=== PATIENT | male | born 1975 ===

== ENCOUNTER 2021-12-26 11:49 | Inpatient (IN) | payer SELFPAY ==
[2021-12-26 13:46] LABS: Bilirubin,Urine NEG (Negative); Blood,Urine MOD (Negative); Color,Urine Amber (Yellow)
--- NOTE | 2021-12-26 13:52 | Cat Scan Report ---
CT head/brain wo con INDICATION: fall. TECHNIQUE: Routine CT head. All CT scans at this location are performed using CT dose reduction for A GIRMA by means of automated exposure control. COMPARISON: None. FINDINGS: Intracranial: Dao-white matter differentiation is maintained. No intracranial hemorrhage. No extra a xial collection. No hydrocephalus. No herniation. Sinuses: Moderate mucosal thickening in the paranasal sinuses. Mastoid air cells are clear.. Orbits: Globes are intact. Calvarium: No acute fracture. IMPRESSION: 1. No acute intracranial abnormality. Signer Name: Carlos Heck MD Signed: 12/26/2021 1:48 PM Workstation Name: [id number]
[2021-12-26 13:54] LABS: Hyaline Casts,Urine 21 /LPF; Mucus,Urine FEW /HPF
[2021-12-26 14:44] LABS: Alanine Aminotransferase 171 units/L (7-56); Albumin 3.9 g/dL (3.9-5); Blood Urea Nitrogen 6 mg/dL (9-20); Calcium 8.3 mg/dL (8.4-10.2); Hemolysis Index 10
[2021-12-26 14:55] LABS: BUN/Creatinine Ratio 15; Hematocrit 36.5 % (35.5-45.6); Hemoglobin 12.9 gm/dl (11.8-15.2); Mean Corpuscular Volume 101 fl (84-94)
[2021-12-26 14:56] LABS: Basophils % (Auto) 0.3 % (0.0-1.8); Eosinophils % (Auto) 0.3 % (0.0-4.3); Lymphocytes # (Auto) 0.3 K/mm3 (1.2-5.4); Lymphocytes % (Auto) 7.1 % (13.4-35.0); Mean Corpuscular HGB Conc 35 % (32-34); Monocytes # (Auto) 0.4 K/mm3 (0.0-0.8); Platelet Count 38 K/mm3 (140-440); Red Cell Distribution Width 15.2 % (13.2-15.2)
[2021-12-26] MEDS ORDERED: traMADol 50 MG TAB PO ONE (16:32)
--- NOTE | 2021-12-26 16:37 | Emergency Department Report ---
HPI - General Chief Complaint: Fall Time Seen by Provider: 12/26/21 13:21 - [facility] HPI: [place] [id number] The patient is a 46-year-old male present with a chief complaint of head injury after fall. Patient states he recalls drinking alcohol yesterday and then fa lling injuring his head. Patient states he does not really remember the event to well but now has a headache in the occipital region. Patient gives his headache a score of 10/10. Patient denies neck pain. Patient denies nausea or vomiting ED Past Medical Hx - Past Medical History Previous Medical History?: No - Surgical History Past Surgical History?: No - Family History Family history: no significant - Social History Smoking Status: Never Smoker Substance Use Type: None, Alcohol (Drinks daily for the last month) - Medications Home Medications: Home Medications Medication Instructions Recorded Confirmed Last Taken Type traMADoL [Ultram] 50 mg PO Q6HR PRN #10 tablet 12/26/21 Unknown Rx ED Review of Systems ROS: Stated complaint: GROUND LEVEL FALL Other details as noted in HPI Constitutional: no symptoms reported Eyes: denies: eye pain ENT: denies: throat pain Respiratory: no symptoms reported Cardiovascular: denies: chest pain Endocrine: no symptoms reported Gastrointestinal: denies: abdominal pain, nausea, vomiting Genitourinary: denies: dysuria Musculoskeletal: denies: arthralgia Neurological: headache Physical Exam - Physical Exam Vital Signs: Vital Signs 12/26/21 11:53 Temperature 98.0 F Pulse Rate 83 Respiratory 18 Rate Blood Pressure 119/74 [Left] O2 Sat by Pulse 95 Oximetry Physical Exam: GENERAL: The patient is well-developed well-nourished male lying on stretcher not appearing to be in acute distress. [] HEENT: Normocephalic. Ecchymosis to the right forehead. Extraocular motions are intact. Patient has moist mucous membranes. NECK: Supple. No axial tenderness to palpation. No axial step-off CHEST/LUNGS: Clear to auscultation. There is no respiratory distress noted. HEART/CARDIOVASCULAR: Regular. There is no tachycardia. There is no gallop rub or murmur. ABDOMEN: Abdomen is soft, nontender. Patient has normal bowel sounds. There is no abdominal distention. SKIN: There is no rash. There is no edema. There is no diaphoresis. NEURO: The patient is awake, alert, and oriented. The patient is cooperative. The patient has no focal neurologic deficits. The patient has normal speech. GCS 15 MUSCULOSKELETAL: There is no axial tenderness to palpation. There is no evide nce of acute injury. ED Course Vital Signs 12/26/21 11:53 Temperature 98.0 F Pulse Rate 83 Respiratory 18 Rate Blood Pressure 119/74 [Left] O2 Sat by Pulse 95 Oximetry ED Medical Decision Making - Lab Data Result diagrams: 12/26/21 14:08 12/26/21 14:08 Laboratory Tests 12/26/21 12/26/21 12/26/21 14:08 14:08 14:08 WBC 4.4 L RBC 3.60 L Hgb 12.9 Hct 36.5 MCV 101 H MCH 36 H MCHC 35 H RDW 15.2 Plt Count 38 L Lymph % (Auto) 7.1 L [place] % (Auto) 9.0 H Eos % (Auto) 0.3 Baso % (Auto) 0.3 Lymph # (Auto) 0.3 L [place] # (Auto) 0.4 Eos # (Auto) 0.0 Baso # (Auto) 0.0 Seg Neutrophils % 83.3 H Seg Neutrophils # 3.7 Sodium 140 Potassium 3.6 Chloride 102.7 Carbon Dioxide 22 Anion Gap 19 BUN 6 L Creatinine 0.4 L Estimated GFR > 60 BUN/Creatinine Ratio 15 Glucose 100 Calcium 8.3 L Total Bilirubin 2.00 H AST 379 H ALT 171 H Alkaline Phosphatase 125 Total Protein 6.8 Albumin 3.9 Albumin/Globulin Ratio 1.3 Urine Color Urine Turbidity Urine pH Ur Specific [place] Urine Protein Urine Glucose (UA) Urine Ketones Urine Blood Urine Nitrite Urine Bilirubin Urine Urobilinogen Ur Leukocyte Esterase Urine WBC (Auto) Urine RBC (Auto) U Epithel Cells (Auto) Hyaline Casts Urine Mucus Plasma/Serum Alcohol 0.06 12/26/21 Unknown WBC RBC Hgb Hct MCV MCH MCHC RDW Plt Count Lymph % (Auto) [place] % (Auto) Eos % (Auto) Baso % (Auto) Lymph # (Auto) [place] # (Auto) Eos # (Auto) Baso # (Auto) Seg Neutrophils % Seg Neutrophils # Sodium Potassium Chloride Carbon Dioxide Anion Gap BUN Creatinine Estimated GFR BUN/Creatinine Ratio Glucose Calcium Total Bilirubin AST ALT Alkaline Phosphatase Total Protein Albumin Albumin/Globulin Ratio Urine Color [place] Urine Turbidity Slightly-cloudy Urine pH 6.0 Ur Specific Mccoy 1.012 Urine Protein 100 mg/dl Urine Glucose (UA) Neg Urine Ketones Neg Urine Blood Mod Urine Nitrite Neg Urine Bilirubin Neg Urine Urobilinogen 2.0 Ur Leukocyte Esterase Neg Urine WBC (Auto) 1.0 Urine RBC (Auto) 19.0 U Epithel Cells (Auto) 1.0 Hyaline Casts 21 Urine Mucus Few Plasma/Serum Alcohol - Radiology Data Radiology results: report reviewed (CT head), image reviewed (CT head) [facility] [address] [place] [address] Cat Scan Report Signed Patient: PARUL HARMAN MR#: [id number] : 1975 Acct:[id number] Age/Sex: 46 / M ADM Date: 12/26/21 Loc: ED Attending Dr: Ordering Physician: FRANK QUEVEDO MD Date of Service: 12/26/21 Procedure(s): CT head/brain wo con Accession Number(s): [id number] cc: FRANK QUEVEDO MD CT head/brain wo con INDICATION: fall. TECHNIQUE: Routine CT head. All CT scans at this location are performed using CT dose reduction for ALARA by means of automated exposure control. COMPARISON: None. FINDINGS: Intracranial: Dao-white matter differentiation is maintained. No intracranial hemorrhage. No extra axial collection. No hydrocephalus. No herniation. Sinuses: Moderate mucosal thickening in the paranasal sinuses. Mastoid air cells are clear.. Orbits: Globes are intact. Calvarium: No acute fracture. IMPRESSION: 1. No acute intracranial abnormality. Signer Name: Carlos Heck MD Signed: 12/26/2021 1:48 PM Workstation Name: [id number] Transcribed By: CS Dictated By: Carlos Heck MD Electronically Authenticated By: Carlos Heck MD Signed Date/Time: 12/26/21 1348 DD/ 1345 TD/TT: - Differential Diagnosis Closed head injury, ICH Critical care attestation.: If time is entered above; I have spent that time in minutes in the direct care of this critically ill patient, excluding procedure time. ED Disposition Clinical Impression: Closed head injury, Alcoholic hepatitis Disposition: HOME / SELF CARE / HOMELESS Is pt being admited?: No Does the pt Need Aspirin: No Condition: Stable Instructions: Head Injury, Adult, [id number] Additional Instructions: Return to the emergency department should you develop worsening symptoms, inability to tolerate food or liquids, high fever or any other concerns Prescriptions: traMADoL [Ultram] 50 mg PO Q6HR PRN #10 tablet PRN Reason: Pain Referrals: PRIMARY CARE, [Primary Care Provider] - 3-[address] [facility] [Provider Group] - 3-5 Days Time of Disposition: 16:36
[2021-12-26] MEDS ORDERED: LORazepam 2 MG/ML VIAL ONE (17:37)
[2021-12-26] MEDS ORDERED: LORazepam 2 MG/ML VIAL IV PRN ×2 (17:38→18:50)
[2021-12-26] MEDS ORDERED: LORazepam 2 MG/ML VIAL IV ONE (17:38)
--- NOTE | 2021-12-26 17:40 | Event Note ---
Date: 12/26/21 Prior to discharge patient had a witnessed generalized tonic-clonic seizure. Presumably alcohol withdrawal. Patient given Ativan and started on CIWA protocol. Patient will be admitted to the hospital for further observation Care transferred to hospitalist (Dr. Romero)
--- NOTE | 2021-12-26 18:40 | History and Physical Report ---
History of Present Illness Date of examination: 12/26/21 Date of admission: 12/26/2021 Chief complaint: Fall and hitting his head Altered sensorium History of present illness: The patient is a 46-year-old male present with a chief complaint of head injury after fall. Patient states he recalls drinking alcohol yesterday and then falling injuring his head. Patient states he does not really remember the event well but now has a headache in the occipital region. Patient gives his headache a score of 10/10. Patient denies neck pain. Patient denies nausea or vomiting. Patient states he drank heavily yesterday nearly half a bottle of tequila. Binge drinking present. - Past Medical History Previous Medical History?: No - Surgical History Past Surgical History?: No - Family History Family history: no significant - Social History Smoking Status: Never Smoker Substance Use Type: None, Alcohol (Drinks daily for the last month) - Medications Home Medications: Home Medications Medication Instructions Recorded Confirmed Last Taken Type traMADoL [Ultram] 50 mg PO Q6HR PRN #10 tablet 12/26/21 Unknown Rx Review of Systems ROS: Stated complaint: GROUND LEVEL FALL Other details as noted in HPI Constitutional: no symptoms reported Eyes: denies: eye pain ENT: denies: throat pain Respiratory: no symptoms reported Cardiovascular: denies: chest pain Endocrine: no symptoms reported Gastrointestinal: denies: abdominal pain, nausea, vomiting Genitourinary: denies: dysuria Musculoskeletal: denies: arthralgia Neurological: headache Medications and Allergies Allergies Allergy/AdvReac Type Severity Reaction Status Date / Time No Known Allergies Allergy Unverified 12/26/21 11:53 Home Medications Medication Instructions Recorded Confirmed Last Taken Type traMADoL [Ultram] 50 mg PO Q6HR PRN #10 tablet 12/26/21 Unknown Rx Active Meds: Active Medications Lorazepam (Lorazepam 2 Mg/Ml Vial) 2 mg IV Q1HR PRN PRN Reason: CIWA-Ar 8-15 Lorazepam (Lorazepam 2 Mg/Ml Vial) 4 mg IV Q1HR PRN PRN Reason: CIWA-Ar 16-25 Lorazepam (Lorazepam 2 Mg/Ml Vial) 4 mg IV Q15MIN PRN PRN Reason: CIWA-Ar >25 Exam - Constitutional Vitals: Temp Pulse Resp BP Pulse Ox 98.0 F 107 H 18 128/84 99 12/26/21 11:53 07/12/22 17:49 12/26/21 17:49 12/26/21 17:49 12/26/21 17:49 General appearance: Present: no acute distress, well-nourished - EENT Eyes: Present: PERRL ENT: hearing intact, clear oral mucosa - Neck Neck: Present: supple, normal ROM - Respiratory Respiratory effort: normal Respiratory: bilateral: CTA - Cardiovascular Heart rate: 78 Rhythm: regular Heart Sounds: Present: S1 & S2. Absent: rub, click - Extremities Extremities: no ischemia, pulses intact, pulses symmetrical, No edema Peripheral Pulses: within normal limits - Abdominal General gastrointestinal: Present: soft, non-tender, non-distended, normal bowel sounds Male genitourinary: Present: normal - Integumentary Integumentary: Present: clear, warm, dry - Musculoskeletal Musculoskeletal: gait normal, strength equal bilaterally - Psychiatric Psychiatric: appropriate mood/affect, intact judgment & insight - Neurologic Neurologic: CNII-XII intact, moves all extremities Results - Labs CBC & Chem 7: 12/27/21 05:36 12/27/21 05:36 Labs: Laboratory Last Values WBC 4.4 K/mm3 (4.5-11.0) L 12/26/21 14:08 RBC 3.60 M/mm3 (3.65-5.03) L 12/26/21 14:08 Hgb 12.9 gm/dl (11.8-15.2) 12/26/21 14:08 Hct 36.5 % (35.5-45.6) 12/26/21 14:08 MCV 101 fl (84-94) H 12/26/21 14:08 MCH 36 pg (28-32) H 12/26/21 14:08 MCHC 35 % (32-34) H 12/26/21 14:08 RDW 15.2 % (13.2-15.2) 12/26/21 14:08 Plt Count 38 K/mm3 (140-440) L 12/26/21 14:08 Lymph % (Auto) 7.1 % (13.4-35.0) L 12/26/21 14:08 [place] % (Auto) 9.0 % (0.0-7.3) H 12/26/21 14:08 Eos % (Auto) 0.3 % (0.0-4.3) 12/26/21 14:08 Baso % (Auto) 0.3 % (0.0-1.8) 12/26/21 14:08 Lymph # (Auto) 0.3 K/mm3 (1.2-5.4) L 12/26/21 14:08 [place] # (Auto) 0.4 K/mm3 (0.0-0.8) 12/26/21 14:08 Eos # (Auto) 0.0 K/mm3 (0.0-0.4) 12/26/21 14:08 Baso # (Auto) 0.0 K/mm3 (0.0-0.1) 12/26/21 14:08 Seg Neutrophils % 83.3 % (40.0-70.0) H 12/26/21 14:08 Seg Neutrophils # 3.7 K/mm3 (1.8-7.7) 12/26/21 14:08 Sodium 140 mmol/L (137-145) 12/26/21 14:08 Potassium 3.6 mmol/L (3.6-5.0) 12/26/21 14:08 Chloride 102.7 mmol/L (98-107) 12/26/21 14:08 Carbon Dioxide 22 mmol/L (22-30) 12/26/21 14:08 Anion Gap 19 mmol/L 12/26/21 14:08 BUN 6 mg/dL (9-20) L 12/26/21 14:08 Creatinine 0.4 mg/dL (0.8-1.3) L 12/26/21 14:08 Estimated GFR > 60 ml/min 12/26/21 14:08 BUN/Creatinine Ratio 15 % 12/26/21 14:08 Glucose 100 mg/dL (75-100) 12/26/21 14:08 Calcium 8.3 mg/dL (8.4-10.2) L 12/26/21 14:08 Total Bilirubin 2.00 mg/dL (0.1-1.2) H 12/26/21 14:08 AST 379 units/L (5-40) H 12/26/21 14:08 ALT 171 units/L (7-56) H 12/26/21 14:08 Alkaline Phosphatase 125 units/L (35-129) 12/26/21 14:08 Total Protein 6.8 g/dL (6.3-8.2) 12/26/21 14:08 Albumin 3.9 g/dL (3.9-5) 12/26/21 14:08 Albumin/Globulin Ratio 1.3 % 12/26/21 14:08 Urine Color [place] (Yellow) 12/26/21 Unknown Urine Turbidity Slightly-cloudy (Clear) 12/26/21 Unknown Urine pH 6.0 (5.0-7.0) 12/26/21 Unknown Ur Specific [place] 1.012 (1.003-1.030) 12/26/21 Unknown Urine Protein 100 mg/dl mg/dL (Negative) 12/26/21 Unknown Urine Glucose (UA) Neg mg/dL (Negative) 12/26/21 Unknown Urine Ketones Neg mg/dL (Negative) 12/26/21 Unknown Urine Blood Mod (Negative) 12/26/21 Unknown Urine Nitrite Neg (Negative) 12/26/21 Unknown Urine Bilirubin Neg (Negative) 12/26/21 Unknown Urine Urobilinogen 2.0 mg/dL (<2.0) 12/26/21 Unknown Ur Leukocyte Esterase Neg (Negative) 12/26/21 Unknown Urine WBC (Auto) 1.0 /HPF (0.0-6.0) 12/26/21 Unknown Urine RBC (Auto) 19.0 /HPF (0.0-6.0) 12/26/21 Unknown U Epithel Cells (Auto) 1.0 /HPF (0-13.0) 12/26/21 Unknown Hyaline Casts 21 /LPF 12/26/21 Unknown Urine Mucus Few /HPF 12/26/21 Unknown Plasma/Serum Alcohol 0.06 % (0-0.07) 12/26/21 14:08 Short CBC 12/26/21 12/27/21 Range/Units 14:08 05:36 WBC 4.4 L 3.2 L (4.5-11.0) K/mm3 Hgb 12.9 12.8 (11.8-15.2) gm/dl Hct 36.5 37.1 (35.5-45.6) % Plt Count 38 L 35 L (140-440) K/mm3 BMP 12/26/21 12/27/21 14:08 05:36 Sodium 140 138 Potassium 3.6 3.2 L Chloride 102.7 103.9 Carbon Dioxide 22 22 BUN 6 L 8 L Creatinine 0.4 L 0.4 L Glucose 100 104 H Calcium 8.3 L 7.8 L Liver Function 12/26/21 12/27/21 Range/Units 14:08 05:36 Total Bilirubin 2.00 H 2.60 H (0.1-1.2) mg/dL AST 379 H 322 H (5-40) units/L ALT 171 H 156 H (7-56) units/L Alkaline Phosphatase 125 107 (35-129) units/L Albumin 3.9 3.3 L (3.9-5) g/dL Urine 12/26/21 Range/Units Unknown Urine Color [place] (Yellow) Urine pH 6.0 (5.0-7.0) Ur Specific [place] 1.012 (1.003-1.030) Urine Protein 100 mg/dl (Negative) mg/dL Urine Glucose (UA) Neg (Negative) mg/dL Short CBC 12/26/21 12/27/21 Range/Units 14:08 05:36 WBC 4.4 L 3.2 L (4.5-11.0) K/mm3 Hgb 12.9 12.8 (11.8-15.2) gm/dl Hct 36.5 37.1 (35.5-45.6) % Plt Count 38 L 35 L (140-440) K/mm3 BMP 12/26/21 12/27/21 14:08 05:36 Sodium 140 138 Potassium 3.6 3.2 L Chloride 102.7 103.9 Carbon Dioxide 22 22 BUN 6 L 8 L Creatinine 0.4 L 0.4 L Glucose 100 104 H Calcium 8.3 L 7.8 L Liver Function 12/26/21 12/27/21 Range/Units 14:08 05:36 Total Bilirubin 2.00 H 2.60 H (0.1-1.2) mg/dL AST 379 H 322 H (5-40) units/L ALT 171 H 156 H (7-56) units/L Alkaline Phosphatase 125 107 (35-129) units/L Albumin 3.9 3.3 L (3.9-5) g/dL Urine 12/26/21 Range/Units Unknown Urine Color [place] (Yellow) Urine pH 6.0 (5.0-7.0) Ur Specific [place] 1.012 (1.003-1.030) Urine Protein 100 mg/dl (Negative) mg/dL Urine Glucose (UA) Neg (Negative) mg/dL - Imaging and Cardiology CT Scan - head: report reviewed Venous US: pending Imaging and Cardiology: Head CT No acute intracranial abnormality Assessment and Plan Advance Directives: Yes (Full code) VTE prophylaxis?: Chemical Plan of care discussed with patient/family: Yes - Patient Problems (1) Closed head injury Current Visit: Yes Status: Acute Qualifiers: Encounter type: initial encounter Qualified Code(s): S09.90XA - Unspecified injury of head, initial encounter Plan to address problem: No subdural hematoma Concussion injury Symptomatic treatment (2) EtOH dependence Current Visit: Yes Status: Chronic Qualifiers: Substance use status: uncomplicated Qualified Code(s): F10.20 - Alcohol dependence, uncomplicated Plan to address problem: Patient initiated on CIWA protocol and IV fluids (3) Transaminitis Current Visit: Yes Status: Acute Plan to address problem: Secondary to alcohol Acute hepatitis profile requeste (4) DVT prophylaxis Current Visit: Yes Status: Acute Plan to address problem: On anticoagulation GI prophylaxis
[2021-12-26] MEDS ORDERED: ACETAMINOPHEN 325 MG TAB PO PRN (18:43)
[2021-12-26] MEDS ORDERED: METOCLOPRAMIDE 10 MG/2 ML INJ IV PRN (18:43)
[2021-12-26] MEDS ORDERED: oxyCODONE /ACETAMINOPHEN 5-325MG TAB PO PRN (18:43)
[2021-12-26] MEDS ORDERED: ONDANSETRON 4 MG/2 ML INJ IV PRN (18:43)
[2021-12-26] MEDS: levETIRAcetam 750 MG in DEXTROSE 5% IN WATER 100 ML IV SCH (19:28)
[2021-12-26] MEDS ORDERED: THIAMINE 100 MG, FOLIC ACID 1 MG, MULTIPLE VITAMIN INJ, ADULT 10 ML in SODIUM CHLORIDE ... IV ONE (20:00)
[2021-12-26] MEDS: LORazepam 2 MG/ML VIAL IV PRN (20:36)
[2021-12-26] MEDS ORDERED: FAMOTIDINE 20 MG/2 ML INJ IV SCH (22:00)
[2021-12-26] MEDS: D5W/0.9% NACL 1,000 ML IV SCH (23:07)
[2021-12-26] MEDS: HEPARIN 5,000 UNIT/1 ML VIAL SUB-Q SCH (23:09)
[2021-12-27] MEDS: levETIRAcetam 750 MG in DEXTROSE 5% IN WATER 100 ML IV SCH ×3 (00:30→21:33)
[2021-12-27] MEDS: LORazepam 2 MG/ML VIAL IV PRN ×4 (04:17→23:33)
[2021-12-27 06:19] LABS: Basophils % (Auto) 0.7 % (0.0-1.8); Eosinophils # (Auto) 0.1 K/mm3 (0.0-0.4); Hematocrit 37.1 % (35.5-45.6); Hemoglobin 12.8 gm/dl (11.8-15.2); Lymphocytes # (Auto) 0.6 K/mm3 (1.2-5.4); Lymphocytes % (Auto) 17.5 % (13.4-35.0); Mean Corpuscular HGB Conc 34 % (32-34); Mean Corpuscular Volume 103 fl (84-94); Monocytes # (Auto) 0.4 K/mm3 (0.0-0.8); Red Cell Distribution Width 14.8 % (13.2-15.2)
[2021-12-27 06:20] LABS: Platelet Count 35 K/mm3 (140-440)
[2021-12-27 06:37] LABS: Alanine Aminotransferase 156 units/L (7-56); Albumin 3.3 g/dL (3.9-5); BUN/Creatinine Ratio 20; Blood Urea Nitrogen 8 mg/dL (9-20); Calcium 7.8 mg/dL (8.4-10.2); Hemolysis Index 5
[2021-12-27] MEDS: FAMOTIDINE 20 MG TAB PO SCH ×3 (08:53→21:22)
[2021-12-27] MEDS: HEPARIN 5,000 UNIT/1 ML VIAL SUB-Q SCH ×3 (08:54→21:22)
[2021-12-27 14:35] LABS: Hepatitis B Surface Antigen Non-Reactive (Negative); Hepatitis C Virus Antibody Non-Reactive (NonReactive)
[2021-12-28] MEDS: LORazepam 2 MG/ML VIAL IV PRN ×4 (00:14→21:44)
[2021-12-28] MEDS ORDERED: WATER FOR INJ Sterile (PF) 10 ML ONE ×2 (02:20→14:48)
[2021-12-28] MEDS ORDERED: ZIPRASIDONE MESYLATE 20 MG VIAL IM ONE (02:28)
[2021-12-28] MEDS: D5W/0.9% NACL 1,000 ML IV SCH (05:46)
[2021-12-28] MEDS: levETIRAcetam 500 MG TAB PO SCH ×3 (08:40→21:44)
[2021-12-28] MEDS: FAMOTIDINE 20 MG TAB PO SCH ×3 (08:40→21:45)
[2021-12-28] MEDS: HEPARIN 5,000 UNIT/1 ML VIAL SUB-Q SCH ×3 (08:50→21:44)
--- NOTE | 2021-12-28 09:12 | Electrocardiograph Report ---
[facility] Test Date: 2021-12-26 Test Time: 17:46:12 Pat Name: PARUL HARMAN Department: Room: A366 1 Gender: M Marketing Recruiter: FÉLIX : 1975 Requested By: SHAKILA LOZADA Order Number: [id number] Reading MD: Corona Kwan Measurements Intervals [place] Rate: 100 P: 61 MS: 152 QRS: 84 QRSD: 116 T: 1 QT: 352 QTc: 453 Interpretive Statements Sinus tachycardia Probable left atrial enlargement nonspecific st-t No previous ECG available for comparison Electronically Signed On 12-28-2021 9:12:44 EDT by Corona Kwan
--- NOTE | 2021-12-28 12:10 | Progress Note ---
Assessment and Plan - Patient Problems (1) Closed head injury Current Visit: Yes Status: Acute Qualifiers: Encounter type: initial encounter Qualified Code(s): S09.90XA - Unspecified injury of head, initial encounter Plan to address problem: No subdural hematoma Concussion injury Symptomatic treatment (2) EtOH dependence Current Visit: Yes Status: Chronic Qualifiers: Substance use status: uncomplicated Qualified Code(s): F10.20 - Alcohol dependence, uncomplicated Plan to address problem: Patient initiated on CIWA protocol and IV fluids (3) Transaminitis Current Visit: Yes Status: Acute Plan to address problem: Secondary to alcohol Acute hepatitis profile requeste (4) Delirium tremens Current Visit: Yes Status: Acute Plan to address problem: On CIWA protocol with Ativan and Geodon (5) DVT prophylaxis Current Visit: Yes Status: Acute Plan to address problem: On anticoagulation GI prophylaxis (6) Advance care planning Current Visit: Yes Status: Acute Plan to address problem: Disease education conducted, care plan discussed, diagnosis discussed and patient acknowledges understanding with care plan. +30 minutes. Subjective Date of service: 12/27/21 Principal diagnosis: EtOH dependence and delirium tremens Interval history: The patient is a 46-year-old male present with a chief complaint of head injury after fall. Patient states he recalls drinking alcohol yesterday and then falling injuring his head. Patient states he does not really remember the event well but now has a headache in the occipital region. Patient gives his headache a score of 10/10. Patient denies neck pain. Patient denies nausea or vomiting. Patient states he drank heavily yesterday nearly half a bottle of tequila. Binge drinking present. 12/27/2021 EtOH dependence Patient and DTs CIWA protocol initiated Objective - Constitutional Vitals: Vital Signs - 12hr 12/28/21 05:52 Temperature 98.4 F Pulse Rate 76 Respiratory 18 Rate Blood Pressure 117/77 [Left] O2 Sat by Pulse 100 Oximetry General appearance: Present: no acute distress, well-nourished - EENT Eyes: PERRL, EOM intact ENT: hearing intact, clear oral mucosa Ears: bilateral: normal - Neck Neck: supple, normal ROM - Respiratory Respiratory effort: normal Respiratory: bilateral: CTA - Breasts Breasts: normal - Cardiovascular Heart rate: 78 Rhythm: regular Heart Sounds: Present: S1 & S2. Absent: gallop, rub Extremities: pulses intact, No edema, normal color, Full ROM - Gastrointestinal General gastrointestinal: Present: soft, non-tender, non-distended, normal bowel sounds - Genitourinary Male genitourinary: normal - Integumentary Integumentary: clear, warm, dry - Musculoskeletal Musculoskeletal: 1, strength equal bilaterally - Neurologic Neurologic: moves all extremities - Psychiatric Psychiatric: memory intact, appropriate mood/affect, intact judgment & insight - Allied health notes Allied health notes reviewed: nursing, case management - Labs CBC & Chem 7: 12/27/21 05:36 12/27/21 05:36
--- NOTE | 2021-12-28 12:14 | Progress Note ---
Assessment and Plan - Patient Problems (1) Closed head injury Current Visit: Yes Status: Acute Qualifiers: Encounter type: initial encounter Qualified Code(s): S09.90XA - Unspecified injury of head, initial encounter Plan to address problem: No subdural hematoma Concussion injury Symptomatic treatment (2) EtOH dependence Current Visit: Yes Status: Chronic Qualifiers: Substance use status: uncomplicated Qualified Code(s): F10.20 - Alcohol dependence, uncomplicated Plan to address problem: Patient initiated on CIWA protocol and IV fluids (3) Transaminitis Current Visit: Yes Status: Acute Plan to address problem: Secondary to alcohol (4) Delirium tremens Current Visit: Yes Status: Acute Plan to address problem: Worsening Geodon 20 mg every 12 Four-point restraint (5) DVT prophylaxis Current Visit: Yes Status: Acute Plan to address problem: On anticoagulation GI prophylaxis (6) Advance care planning Current Visit: Yes Status: Acute Plan to address problem: Disease education conducted, care plan discussed, diagnosis discussed, prognosis discussed. Subjective Date of service: 12/28/21 Principal diagnosis: EtOH dependence and delirium tremens Interval history: The patient is a 46-year-old male present with a chief complaint of head injury after fall. Patient states he recalls drinking alcohol yesterday and then falling injuring his head. Patient states he does not really remember the event well but now has a headache in the occipital region. Patient gives his headache a score of 10/10. Patient denies neck pain. Patient denies nausea or vomiting. Patient states he drank heavily yesterday nearly half a bottle of tequila. Binge drinking present. 12/27/2021 EtOH dependence Patient and DTs CIWA protocol initiated 12/28/2021 Patient more agitated Had to report four-point restraints Geodon initiated Objective - Constitutional Vitals: Vital Signs - 12hr 12/28/21 05:52 Temperature 98.4 F Pulse Rate 76 Respiratory 18 Rate Blood Pressure 117/77 [Left] O2 Sat by Pulse 100 Oximetry General appearance: Present: no acute distress, well-nourished - EENT Eyes: PERRL, EOM intact ENT: hearing intact, clear oral mucosa Ears: bilateral: normal - Neck Neck: supple, normal ROM - Respiratory Respiratory effort: normal Respiratory: bilateral: CTA - Breasts Breasts: normal - Cardiovascular Heart rate: 78 Rhythm: regular Heart Sounds: Present: S1 & S2. Absent: gallop, rub Extremities: pulses intact, No edema, normal color, Full ROM - Gastrointestinal General gastrointestinal: Present: soft, non-tender, non-distended, normal bowel sounds - Genitourinary Male genitourinary: normal - Integumentary Integumentary: clear, warm, dry - Musculoskeletal Musculoskeletal: 1, strength equal bilaterally - Neurologic Neurologic: moves all extremities - Psychiatric Psychiatric: memory intact, appropriate mood/affect, intact judgment & insight - Labs CBC & Chem 7: 12/27/21 05:36 12/27/21 05:36
[2021-12-28] MEDS: ZIPRASIDONE MESYLATE 20 MG VIAL IM PRN (15:48)
[2021-12-29] MEDS: ZIPRASIDONE MESYLATE 20 MG VIAL IM PRN (05:37)
[2021-12-29] MEDS: LORazepam 2 MG/ML VIAL IV PRN ×4 (05:39→20:44)
[2021-12-29] MEDS: levETIRAcetam 500 MG TAB PO SCH ×2 (12:40→22:28)
[2021-12-29] MEDS: FAMOTIDINE 20 MG TAB PO SCH ×2 (12:40→22:29)
[2021-12-29] MEDS: HEPARIN 5,000 UNIT/1 ML VIAL SUB-Q SCH ×2 (12:40→22:28)
[2021-12-29] MEDS: D5W/0.9% NACL 1,000 ML IV SCH (22:31)
[2021-12-30] MEDS: LORazepam 2 MG/ML VIAL IV PRN ×3 (03:06→11:11)
[2021-12-30] MEDS: D5W/0.9% NACL 1,000 ML IV SCH ×2 (06:31→17:17)
[2021-12-30] MEDS: FAMOTIDINE 20 MG TAB PO SCH ×2 (09:36→21:47)
[2021-12-30] MEDS: levETIRAcetam 500 MG TAB PO SCH ×2 (09:36→21:46)
[2021-12-30] MEDS: HEPARIN 5,000 UNIT/1 ML VIAL SUB-Q SCH ×2 (09:38→21:47)
--- NOTE | 2021-12-30 16:41 | Progress Note ---
Assessment and Plan - Patient Problems (1) Closed head injury Current Visit: Yes Status: Acute Qualifiers: Encounter type: initial encounter Qualified Code(s): S09.90XA - Unspecified injury of head, initial encounter Plan to address problem: No subdural hematoma Concussion injury Symptomatic treatment (2) EtOH dependence Current Visit: Yes Status: Chronic Qualifiers: Substance use status: uncomplicated Qualified Code(s): F10.20 - Alcohol dependence, uncomplicated Plan to address problem: Patient initiated on CIWA protocol and IV fluids (3) Transaminitis Current Visit: Yes Status: Acute Plan to address problem: Secondary to alcohol (4) Delirium tremens Current Visit: Yes Status: Acute Plan to address problem: Worsening Geodon 20 mg every 12 Four-point restraint (5) DVT prophylaxis Current Visit: Yes Status: Acute Plan to address problem: On anticoagulation GI prophylaxis (6) Advance care planning Current Visit: Yes Status: Acute Plan to address problem: Disease education conducted, care plan discussed, diagnosis discussed, prognosis discussed. Subjective Date of service: 12/29/21 Principal diagnosis: EtOH dependence and delirium tremens Interval history: The patient is a 46-year-old male present with a chief complaint of head injury after fall. Patient states he recalls drinking alcohol yesterday and then falling injuring his head. Patient states he does not really remember the event well but now has a headache in the occipital region. Patient gives his headache a score of 10/10. Patient denies neck pain. Patient denies nausea or vomiting. Patient states he drank heavily yesterday nearly half a bottle of tequila. Binge drinking present. 12/27/2021 EtOH dependence Patient and DTs CIWA protocol initiated 12/28/2021 Patient more agitated Had to report four-point restraints Geodon initiated 12/29/2021 Patient still in four-point restraints More calmer than yesterday Less agitated Objective - Constitutional Vitals: Vital Signs - 12hr 12/30/21 12/30/21 06:10 11:16 Temperature 99.8 F H Pulse Rate 94 H 90 Respiratory 18 16 Rate Blood Pressure 138/87 119/82 O2 Sat by Pulse 97 97 Oximetry General appearance: Present: no acute distress, well-nourished - EENT Eyes: PERRL, EOM intact ENT: hearing intact, clear oral mucosa Ears: bilateral: normal - Neck Neck: supple, normal ROM - Respiratory Respiratory effort: normal Respiratory: bilateral: CTA - Breasts Breasts: normal - Cardiovascular Rhythm: regular Heart Sounds: Present: S1 & S2. Absent: gallop, rub Extremities: pulses intact, No edema, normal color, Full ROM - Gastrointestinal General gastrointestinal: Present: soft, non-tender, non-distended, normal bowel sounds - Genitourinary Male genitourinary: normal - Integumentary Integumentary: clear, warm, dry - Musculoskeletal Musculoskeletal: 1, strength equal bilaterally - Neurologic Neurologic: moves all extremities - Psychiatric Psychiatric: agitated - Allied health notes Allied health notes reviewed: nursing, case management - Labs CBC & Chem 7: 12/27/21 05:36 12/27/21 05:36
--- NOTE | 2021-12-30 16:47 | Progress Note ---
Assessment and Plan - Patient Problems (1) Closed head injury Current Visit: Yes Status: Acute Qualifiers: Encounter type: initial encounter Qualified Code(s): S09.90XA - Unspecified injury of head, initial encounter Plan to address problem: No subdural hematoma Concussion injury Symptomatic treatment (2) EtOH dependence Current Visit: Yes Status: Chronic Qualifiers: Substance use status: uncomplicated Qualified Code(s): F10.20 - Alcohol dependence, uncomplicated Plan to address problem: Patient initiated on CIWA protocol and IV fluids (3) Transaminitis Current Visit: Yes Status: Acute Plan to address problem: Secondary to alcohol (4) Delirium tremens Current Visit: Yes Status: Acute Plan to address problem: Worsening Geodon 20 mg every 12 Four-point restraint (5) DVT prophylaxis Current Visit: Yes Status: Acute Plan to address problem: On anticoagulation GI prophylaxis (6) Advance care planning Current Visit: Yes Status: Acute Plan to address problem: Disease education conducted, care plan discussed, diagnosis discussed, prognosis discussed. Subjective Date of service: 12/30/21 Principal diagnosis: EtOH dependence and delirium tremens Interval history: The patient is a 46-year-old male present with a chief complaint of head injury after fall. Patient states he recalls drinking alcohol yesterday and then falling injuring his head. Patient states he does not really remember the event well but now has a headache in the occipital region. Patient gives his headache a score of 10/10. Patient denies neck pain. Patient denies nausea or vomiting. Patient states he drank heavily yesterday nearly half a bottle of tequila. Binge drinking present. 12/27/2021 EtOH dependence Patient and DTs CIWA protocol initiated 12/28/2021 Patient more agitated Had to report four-point restraints Geodon initiated 12/29/2021 Patient still in four-point restraints More calmer than yesterday Less agitated 12/30/2021 Patient still agitated but less agitated Objective - Constitutional Vitals: Vital Signs - 12hr 12/30/21 12/30/21 06:10 11:16 Temperature 99.8 F H Pulse Rate 94 H 90 Respiratory 18 16 Rate Blood Pressure 138/87 119/82 O2 Sat by Pulse 97 97 Oximetry General appearance: Present: no acute distress, well-nourished - EENT Eyes: PERRL, EOM intact ENT: hearing intact, clear oral mucosa Ears: bilateral: normal - Neck Neck: supple, normal ROM - Respiratory Respiratory effort: normal Respiratory: bilateral: CTA - Breasts Breasts: normal - Cardiovascular Heart rate: 78 Rhythm: regular Heart Sounds: Present: S1 & S2. Absent: gallop, rub Extremities: pulses intact, No edema, normal color, Full ROM - Gastrointestinal General gastrointestinal: Present: soft, non-tender, non-distended, normal bowel sounds - Genitourinary Male genitourinary: normal - Integumentary Integumentary: clear, warm, dry - Musculoskeletal Musculoskeletal: 1, strength equal bilaterally - Neurologic Neurologic: moves all extremities - Psychiatric Psychiatric: memory intact, agitated - Allied health notes Allied health notes reviewed: nursing, case management - Labs CBC & Chem 7: 12/27/21 05:36 12/27/21 05:36
[2021-12-31] MEDS: D5W/0.9% NACL 1,000 ML IV SCH (04:02)
[2021-12-31 06:34] LABS: Basophils % (Auto) 0.9 % (0.0-1.8); Eosinophils # (Auto) 0.2 K/mm3 (0.0-0.4); Eosinophils % (Auto) 3.6 % (0.0-4.3); Hematocrit 38.8 % (35.5-45.6); Lymphocytes # (Auto) 1.1 K/mm3 (1.2-5.4); Lymphocytes % (Auto) 23.5 % (13.4-35.0); Mean Corpuscular HGB Conc 34 % (32-34); Mean Corpuscular Volume 104 fl (84-94); Monocytes # (Auto) 0.7 K/mm3 (0.0-0.8); Monocytes % (Auto) 15.9 % (0.0-7.3); Red Blood Count 3.72 M/mm3 (3.65-5.03); Red Cell Distribution Width 13.9 % (13.2-15.2)
[2021-12-31 06:36] LABS: Platelet Count 84 K/mm3 (140-440)
[2021-12-31 06:51] LABS: Alanine Aminotransferase 97 units/L (7-56); Albumin 3.2 g/dL (3.9-5); Blood Urea Nitrogen 4 mg/dL (9-20); Calcium 8.4 mg/dL (8.4-10.2); Hemolysis Index 3
[2021-12-31 06:57] LABS: BUN/Creatinine Ratio 10
[2021-12-31] MEDS: LORazepam 2 MG/ML VIAL IV PRN (08:20)
[2021-12-31] MEDS: HEPARIN 5,000 UNIT/1 ML VIAL SUB-Q SCH ×2 (10:36→21:38)
[2021-12-31] MEDS: FAMOTIDINE 20 MG TAB PO SCH ×2 (10:37→21:38)
[2021-12-31] MEDS: levETIRAcetam 500 MG TAB PO SCH ×2 (10:37→21:38)
--- NOTE | 2021-12-31 16:15 | Progress Note ---
Assessment and Plan - Patient Problems (1) Closed head injury Current Visit: Yes Status: Acute Qualifiers: Encounter type: initial encounter Qualified Code(s): S09.90XA - Unspecified injury of head, initial encounter Plan to address problem: No subdural hematoma Concussion injury Symptomatic treatment (2) EtOH dependence Current Visit: Yes Status: Chronic Qualifiers: Substance use status: uncomplicated Qualified Code(s): F10.20 - Alcohol dependence, uncomplicated Plan to address problem: Patient initiated on CIWA protocol and IV fluids (3) Transaminitis Current Visit: Yes Status: Acute Plan to address problem: Secondary to alcohol LFTs improving Initially AST was 379 improved to 322 to 102 ALT improved from 171 to 156 to 97 (4) Delirium tremens Current Visit: Yes Status: Acute Plan to address problem: Worsening Geodon 20 mg every 12 Four-point restraint (5) DVT prophylaxis Current Visit: Yes Status: Acute Plan to address problem: On anticoagulation GI prophylaxis (6) Advance care planning Current Visit: Yes Status: Acute Plan to address problem: Disease education conducted, care plan discussed, diagnosis discussed, prognosis discussed. Subjective Date of service: 12/31/21 Principal diagnosis: EtOH dependence and delirium tremens Interval history: The patient is a 46-year-old male present with a chief complaint of head injury after fall. Patient states he recalls drinking alcohol yesterday and then falling injuring his head. Patient states he does not really remember the event well but now has a headache in the occipital region. Patient gives his headache a score of 10/10. Patient denies neck pain. Patient denies nausea or vomiting. Patient states he drank heavily yesterday nearly half a bottle of tequila. Binge drinking present. 12/27/2021 EtOH dependence Patient and DTs CIWA protocol initiated 12/28/2021 Patient more agitated Had to report four-point restraints Geodon initiated 12/29/2021 Patient still in four-point restraints More calmer than yesterday Less agitated 12/30/2021 Patient still agitated but less agitated 12/31/2021 Potassium is 2.9 Potassium supplemented Objective - Constitutional Vitals: Vital Signs - 12hr 12/31/21 04:24 Temperature 98.4 F Pulse Rate 102 H Respiratory 18 Rate Blood Pressure 131/88 O2 Sat by Pulse 99 Oximetry General appearance: Present: no acute distress, well-nourished - EENT Eyes: PERRL, EOM intact ENT: hearing intact, clear oral mucosa Ears: bilateral: normal - Neck Neck: supple, normal ROM - Respiratory Respiratory effort: normal Respiratory: bilateral: CTA - Breasts Breasts: normal - Cardiovascular Heart rate: 78 Rhythm: regular Heart Sounds: Present: S1 & S2. Absent: gallop, rub Extremities: pulses intact, No edema, normal color, Full ROM - Gastrointestinal General gastrointestinal: Present: soft, non-tender, non-distended, normal bowel sounds - Genitourinary Male genitourinary: normal - Integumentary Integumentary: clear, warm, dry - Musculoskeletal Musculoskeletal: 1, strength equal bilaterally - Neurologic Neurologic: moves all extremities - Psychiatric Psychiatric: memory intact, appropriate mood/affect, intact judgment & insight - Labs CBC & Chem 7: 12/31/21 05:05 12/31/21 05:05 Labs: Abnormal lab results 12/31/21 12/31/21 Range/Units 05:05 05:05 MCV 104 H (84-94) fl MCH 35 H (28-32) pg Plt Count 84 L (140-440) K/mm3 [place] % (Auto) 15.9 H (0.0-7.3) % Lymph # (Auto) 1.1 L (1.2-5.4) K/mm3 Potassium 2.9 L* (3.6-5.0) mmol/L BUN 4 L (9-20) mg/dL Creatinine 0.4 L (0.8-1.3) mg/dL Total Bilirubin 1.80 H (0.1-1.2) mg/dL AST 102 H (5-40) units/L ALT 97 H (7-56) units/L Albumin 3.2 L (3.9-5) g/dL
[2021-12-31] MEDS ORDERED: POTASSIUM CHLORIDE ER 20 MEQ TAB PO ONE ×2 (17:00→20:00)
[2021-12-31] MEDS: POTASSIUM CHLORIDE 10 MEQ 10 MEQ/100 ML BAG IV SCH ×4 (19:38→23:54)
[2022-01-01 05:34] LABS: BUN/Creatinine Ratio 12; Blood Urea Nitrogen 6 mg/dL (9-20); Calcium 8.2 mg/dL (8.4-10.2); Hemolysis Index 2
[2022-01-01 05:36] VITALS: BP 108/71
--- NOTE | 2022-01-01 07:48 | Discharge Summary ---
Providers - Providers Date of Admission: 12/26/21 18:43 Date of discharge: 01/01/22 Attending physician: LUIS LEE Primary care physician: [employer]ATHOLOG[employer]ER Hospitalization Condition: Stable Hospital course: Subjective Date of service: 01/01/22 Principal diagnosis: EtOH dependence and delirium tremens Interval history: The patient is a 46-year-old male present with a chief complaint of head injury after fall. Patient states he recalls drinking alcohol yesterday and then falling injuring his head. Patient states he does not really remember the event well but now has a headache in the occipital region. Patient gives his headache a score of 10/10. Patient denies neck pain. Patient denies nausea or vomiting. Patient states he drank heavily yesterday nearly half a bottle of tequila. Binge drinking present. 12/27/2021 EtOH dependence Patient and DTs CIWA protocol initiated 12/28/2021 Patient more agitated Had to report four-point restraints Geodon initiated 12/29/2021 Patient still in four-point restraints More calmer than yesterday Less agitated 12/30/2021 Patient still agitated but less agitated 12/31/2021 Potassium is 2.9 Potassium supplemented 01/01/2022 Potassium is normal 3.7 No DTs Patient to be discharged home Thiamine and folic acid and Ativan Assessment and Plan - Patient Problems (1) Hypokalemia Current Visit: Yes Status: Acute Plan to address problem: Corrected (2) EtOH dependence Current Visit: Yes Status: Chronic Qualifiers: Substance use status: uncomplicated Qualified Code(s): F10.20 - Alcohol dependence, uncomplicated Plan to address problem: No DTs (3) Transaminitis Current Visit: Yes Status: Acute Plan to address problem: Secondary to alcohol LFTs improving Initially AST was 379 improved to 322 to 102 ALT improved from 171 to 156 to 97 (4) Delirium tremens Current Visit: Yes Status: Acute Plan to address problem: DTs are improved Patient to be discharged on Ativan with follow-up with primary care and alcohol rehab place as outpatient No restraints (5) DVT prophylaxis Current Visit: Yes Status: Acute Plan to address problem: On anticoagulation GI prophylaxis (6) Advance care planning Current Visit: Yes Status: Acute Plan to address problem: Disease education conducted, care plan discussed, diagnosis discussed, prognosis discussed. Disposition: HOME / SELF CARE / HOMELESS Final Discharge Diagnosis (Prints w/discharge instructions): Closed head injury. Delirium tremens. EtOH dependence. Hypokalemia. Transaminitis Time spent for discharge: 35 minutes - Discharge Diagnoses (1) Closed head injury Status: Acute Qualifiers: Encounter type: initial encounter Qualified Code(s): S09.90XA - Unspecified injury of head, initial encounter (2) EtOH dependence Status: Chronic Qualifiers: Substance use status: uncomplicated Qualified Code(s): F10.20 - Alcohol dependence, uncomplicated (3) Transaminitis Status: Acute (4) Delirium tremens Status: Acute (5) DVT prophylaxis Status: Acute (6) Advance care planning Status: Acute Core Measure Documentation - Palliative Care Palliative Care/ Comfort Measures: Not Applicable - Core Measures Any of the following diagnoses?: none Exam - Constitutional Vitals: Temp Pulse Resp BP Pulse Ox 98.0 F 83 18 108/71 98 01/01/22 03:55 01/01/22 03:55 01/01/22 03:55 01/01/22 03:55 01/01/22 03:55 General appearance: Present: no acute distress, well-nourished - EENT Eyes: Present: PERRL ENT: hearing intact, clear oral mucosa - Neck Neck: Present: supple, normal ROM - Respiratory Respiratory effort: normal Respiratory: bilateral: CTA - Cardiovascular Heart rate: 78 Rhythm: regular Heart Sounds: Present: S1 & S2. Absent: rub, click - Extremities Extremities: no ischemia, pulses intact, pulses symmetrical, No edema Peripheral Pulses: within normal limits - Abdominal General gastrointestinal: Present: soft, non-tender, non-distended, normal bowel sounds Male genitourinary: Present: normal - Integumentary Integumentary: Present: clear, warm, dry - Musculoskeletal Musculoskeletal: gait normal, strength equal bilaterally - Psychiatric Psychiatric: appropriate mood/affect, intact judgment & insight - Neurologic Neurologic: CNII-XII intact, moves all extremities - Allied Health Allied health notes reviewed: nursing, case management Plan Activity: no restrictions Diet: regular Follow up with: [facility] [Provider Group] - 3-5 Days PRIMARY CARE, [Primary Care Provider] - 3-5 Days Prescriptions: traMADoL [Ultram] 50 mg PO Q6HR PRN #10 tablet PRN Reason: Pain
[2022-01-01] MEDS: HEPARIN 5,000 UNIT/1 ML VIAL SUB-Q SCH (10:58)
[2022-01-01] MEDS: FAMOTIDINE 20 MG TAB PO SCH (10:59)
[2022-01-01] MEDS: levETIRAcetam 500 MG TAB PO SCH (10:59)
== END 2022-01-01 17:40 | disposition home or self-care (01) | DRG 641 ==
LOC: EDBD → ED 11:49 → 3A 18:43
PROVIDERS: ADMIT Internal Medicine; ATTEND Internal Medicine
DX: E87.6 Hypokalemia (principal); F10.231 Alcohol dependence with withdrawal delirium; F10.20 Alcohol dependence, uncomplicated; K70.10 Alcoholic hepatitis without ascites; R74.01 Elevation of levels of liver transaminase levels; S09.90XA Unspecified injury of head, initial encounter; Y92.89 Other specified places as the place of occurrence of the external cause; Y99.8 Other external cause status
CPT/HCPCS: 36415; 70450; 80048; 80053; 80074; 80320; 81001; 82150; 83690; 85025; 93005; G0378; J3490; J7060; G0480; J1644; J1953; J2060; J3411; J3480; J3486; J7030; J7042